=== PATIENT | female | born 1990 | race Caucasian/White ===

== ENCOUNTER 2023-11-19 13:57 | Emergency (ER) | payer OTHER, BC, SELFPAY ==
[2023-11-19 14:02] VITALS: BP 123/80
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
== END 2023-11-19 16:55 | disposition home or self-care (01) ==
LOC: EMR 13:57
PROVIDERS: EMERGENCY PHYSICIAN Emergency Medicine; FAMILY PHYSICIAN Internal Medicine
DX: S16.1XXA Strain of muscle, fascia and tendon at neck level, initial encounter (principal); S60.221A Contusion of right hand, initial encounter; V43.52XA Car driver injured in collision with other type car in traffic accident, initial encounter; Y92.410 Unspecified street and highway as the place of occurrence of the external cause
CPT/HCPCS: 99283; 73080; 73110

== ENCOUNTER → 2024-08-23 10:24 | Outpatient (REF) | payer BC, SELFPAY | LOC: HWRAD 10:24 | PROVIDERS: ATTENDING PHYSICIAN Obstetrics & Gynecology Gynecology | DX: N94.12 Deep dyspareunia (principal) | CPT/HCPCS: 76830; 76856 ==